=== PATIENT | female | born 1940 | race Caucasian/White ===

== ENCOUNTER 2016-06-18 10:02 | Observation (INO) | payer MEDICARE ==
--- NOTE | ~2016-06-18 | EGD ---
EGD REPORT [facility] [address] [id number] NAME: SANDI CABELLO : [birth year] STATUS : ADM Nils PAT#: [id number] AGE: 76 ADM/REG DATE : 06/18/16 MR#: [id number] REPORT SERV DATE: 06/18/16 DICTATED BY: JEAN PACHECO DATE: 06/18/16 REPORT STATUS : Draft TRANSCRIBED BY: [facility] DATE: 06/18/16 [facility] Patient Name: Sandi Cabello Date of : 1940 Attending MD: STACY PACHECO MD Procedure Date No Time: 06/18/2016 Procedure: Colonoscopy Indications: High risk colon cancer surveillance: Personal history of colonic polyps Referring MD: Abhijit Moss Medicines: See the Anesthesia note for documentation of the administered medications Complications: No immediate complications. Estimated blood loss: None. Procedure: Pre-Anesthesia Assessment: - ASA Grade Assessment: III - A patient with severe systemic disease. - Prior to the procedure, a History and Physical was performed, and patient medications and allergies were reviewed. The patient's tolerance of previous anesthesia was also reviewed. The risks and benefits of the procedure and the sedation options and risks were discussed with the patient. All questions were answered, and informed consent was obtained. Prior Anticoagulants: The patient has taken no previous anticoagulant or antiplatelet agents. After reviewing the risks and benefits, the patient was deemed in satisfactory condition to undergo the procedure. After I obtained informed consent, the scope was passed under direct vision. Throughout the procedure, the patient's blood pressure, pulse, and oxygen saturations were monitored continuously. The PCF [id number] was introduced through the anus and advanced to the terminal ileum. The ileocecal valve, appendiceal orifice, terminal ileum and rectum were photographed. The entire colon was examined. The colonoscopy was performed without difficulty. The patient tolerated the procedure well. The quality of the bowel preparation was adequate. Findings: The perianal and digital rectal examinations were normal. The terminal ileum appeared normal. A sessile polyp was found in the sigmoid colon. The polyp was 5 mm in size. The polyp was removed with a cold snare. Resection and retrieval were complete. No other significant abnormalities were identified in a careful EGD REPORT [address] [address] NAME: SANDI CABELLO : [birth year] STATUS : ADM Nils PAT#: [id number] AGE: 76 ADM/REG DATE : 06/18/16 MR#: [id number] REPORT SERV DATE: 06/18/16 DICTATED BY: JEAN PACHECO DATE: 06/18/16 REPORT STATUS : Draft TRANSCRIBED BY: [employer] DATE: 06/18/16 examination of the remainder of the colon. Impression: - The examined portion of the ileum was normal. - One 5 mm polyp in the sigmoid colon. Resected and retrieved. Recommendation: - Patient has a contact number available for emergencies. The signs and symptoms of potential delayed complications were discussed with the patient. Return to normal activities tomorrow. Written discharge instructions were provided to the patient. - Regular diet. - Discharge patient to home. - Continue present medications. - Await pathology results. - Repeat colonoscopy in 5 years for surveillance. Procedure Code(s): --- Professional --- 84498, Colonoscopy, flexible, proximal to splenic flexure; with removal of tumor(s), polyp(s), or other lesion(s) by snare technique Diagnosis Code(s): --- Professional --- D12.5, Benign neoplasm of sigmoid colon Z86.010, Personal history of colonic polyps CPT copyright 2013 [employer]. All rights reserved. The codes documented in this report are preliminary and upon appliance technician review may be revised to meet current compliance requirements. STACY PACHECO MD 06/18/2016 4:10 PM This report has been signed electronically. Number of Addenda: 0 Note Initiated On: 06/18/2016 10:54 AM Scope Withdrawal Time 0 hours 7 minutes 40 seconds [id number] [id number]
--- NOTE | ~2016-06-18 | HP ---
History And Physical [place] [id number] [facility] [place] [address] NAME: SANDI VALENTIN : [birth year] STATUS : ADM Nils PAT#: [id number] AGE: 76 ADM/REG DATE : 06/18/16 MR#: [id number] REPORT SERV DATE: 06/18/16 DICTATED BY: QUOC MAURICE DATE: 06/18/16 REPORT STATUS : Draft TRANSCRIBED BY: MODMayi DATE: 06/18/16 DATE OF ADMISSION: 06/18/2016 REASON FOR ADMISSION: Atrial flutter/atrial fibrillation with RVR. HISTORY OF PRESENT ILLNESS: Ms. Valentin is a very pleasant 76-year-old female with a history of hypothyroidism, hypertension, hyperlipidemia, remote atrial fibrillation (postoperative approximately three years ago, spontaneously resolved), and colon polyps, who presented to [facility] for an elective outpatient screening colonoscopy. In the preprocedural area, she was found to be in atrial flutter with RVR. She was given IV Lopressor 3 mg and then 2 mg with profound sinus pauses of approximately 6 to 7 seconds times multiple episodes. During these pauses, she was mildly symptomatic with weakness and dizziness. She subsequently received atropine 0.5 mg IV x1 with resolution of her pauses. At that point in time, I was called to evaluate her for further care and therapy regarding her atrial fibrillation. In speaking with her, she states that she has no symptoms whatsoever. She denies having any chest pains, pressures, dizziness, or loss of consciousness (this is all after atropine was given). She additionally states she has not had any issues at home. Since her atrial fibrillation episode approximately three years ago, she is unaware of any recurrence, however, she does not feel palpitations when she is in atrial fibrillation including now. PAST MEDICAL HISTORY: 1. Remote AFib postoperative (approximately three years ago, spontaneously resolved). 2. Hypertension. 3. Hyperlipidemia. 4. Hypothyroidism on Synthroid. 5. Colon polyps. ALLERGIES: LISINOPRIL. SOCIAL HISTORY: The patient lives at [facility] in an independent room. She functions fully independently. She has no limitations whatsoever. She is able to climb four flights of stairs sequentially she states without limitation. She denies drugs, smoking, or drinking alcohol. FAMILY HISTORY: Significant for heart disease (not specified) in her father's family including her dad. REVIEW OF SYSTEMS: As above, all other systems otherwise negative. PHYSICAL EXAMINATION: VITAL SIGNS: Blood pressure 130/80, pulse 140-150 on atrial fibrillation, temperature afebrile. GENERAL: Well developed, well nourished, no acute distress. NEURO: Awake, alert and oriented x3; no focal deficits, appropriate mood. History And Physical [address] [address] NAME: SANDI VALENTIN : [birth year] STATUS : ADM Nils PAT#: [id number] AGE: 76 ADM/REG DATE : 06/18/16 MR#: [id number] REPORT SERV DATE: 06/18/16 DICTATED BY: QUOC MAURICE DATE: 06/18/16 REPORT STATUS : Draft TRANSCRIBED BY: JEANNETTE DATE: 06/18/16 HEENT: Moist mucous membranes, anicteric sclerae, no nasal discharge. NECK: No JVD, no carotid bruit. LUNGS: Clear to auscultation bilaterally, no wheezes, rales or rhonchi. CV: Irregularly irregular. Normal S1, S2. No murmurs, rubs, or gallops. ABD: Soft, non-tender, non-distended, no rebound or guarding. EXT: No pitting edema, normal distal pulses. SKIN: Warm, dry and intact; no rash. PERTINENT TEST FINDINGS: Potassium pending. White blood cell count 5.2, hemoglobin 14.9, platelets 173. Telemetry strips demonstrates atrial fibrillation with RVR as well as significant sinus pauses of approximately 6 to 7 seconds times 3 to 4 episodes (resolved). Potassium 3.6, creatinine 0.98, GFR 56. Troponin 0.03. CPK 112. IMPRESSION AND PLAN: Ms. Valentin is a very pleasant 76-year-old female with a history of hypertension, hyperlipidemia, remote atrial fibrillation, and colon polyps, who presented from home for an elective colonoscopy today found to be in atrial flutter/fibrillation with rapid ventricular response, with pronounced response to IV Lopressor having multiple pauses of 6 to 7 seconds in length, that have since resolved having received atropine. Accordingly, I have the following recommendations for problem below: 1. Atrial fibrillation/atrial flutter-presently in atrial fibrillation with rapid ventricular response. No longer having any sinus pauses. Dosed with amiodarone 150 mg IV x1 (low). Schedule for BRAULIO cardioversion this afternoon as she is currently n.p.o. Avoid further IV Lopressor at this time. Monitor cardiac telemetry for any recurrent pauses, this will likely result in her requiring a pacemaker. As she had a clear trigger for pauses and an exaggerated response to Lopressor, I did not believe she requires a pacemaker at this point in time. Start anticoagulation. I will keep her on a heparin drip for the time being, in the event that she does require a pacemaker tomorrow. Check an echocardiogram. 2. Sinus pauses-as above. These have resolved. They were clearly triggered with IV Lopressor. Pending her response following BRAULIO cardioversion, it may be necessary for her to get a pacemaker. Given, however, that she had a clear trigger for her pauses (IV Lopressor), I do not believe that she warrants a pacemaker adjust at this time. 3. Hypertension-controlled. 4. Hyperlipidemia-statin as written. 5. Hypothyroidism-on home Synthroid. Check TSH and free T4. VR/MODL Quoc Maurice MD / [id number] CC: History And Physical [address] [address] NAME: SANDI VALENTIN : [birth year] STATUS : ADM Nils PAT#: [id number] AGE: 76 ADM/REG DATE : 06/18/16 MR#: [id number] REPORT SERV DATE: 06/18/16 DICTATED BY: QUOC MAURICE DATE: 06/18/16 REPORT STATUS : Draft TRANSCRIBED BY: MODL DATE: 06/18/16 Quoc Maurice MD
[~2016-06-18 10:02] MED LIST: ALLEGRA180 PO; ASAB PO; BIST PO; BYSTOLIC5 MG PO; CALCIUM CITRATE PO; DITRO5 PO; DSS PO; DYAZIDE1 CAP PO; FISH OIL300 MG PO; KLOR-CON M2020 MEQ PO; LEVOTHYROXIN50 MCG PO; LEVOTHYROXIN75 MCG PO; MAX25 PO; MOBIC7.5 PO; NEUR300 PO; NORV25 PO; NORV5 PO; PCET PO; PRILOSEC40 MG PO; PROBIOTIC; SINGULAIR1 PO; ULTRAM50 PO; V5 PO; VITD PO; ZOCOR40 PO; ZOL100 PO; ZOL50 PO
[2016-06-18 11:46] LABS: BASOPHILS 0.2 %; BASOPHILS ABSOLUTE 0.01 10/3/uL (0.0-0.16); EOSINOPHILS 0.4 %; EOSINOPHILS ABSOLUTE 0.02 10/3/uL (0.0-0.53); HEMATOCRIT 43.3 % (36.0-48.0); HEMOGLOBIN 14.9 g/dL (12.0-16.0); LYMPHOCYTES 24.8 %; MEAN CORPUS HGB CONC 34.4 g/dL (32.0-36.0); MEAN CORPUSCULAR HEMOGLOB 30.4 pg (26.0-34.0); MEAN CORPUSCULAR VOLUME 88.4 fL (80-100); MEAN PLATELET VOLUME 12.3 fL (9.2-13.0); MONOCYTES 6.5 %; MONOCYTES ABSOLUTE 0.34 10/3/uL (0.21-1.20); NEUTROPHILS 68.1 %; NEUTROPHILS ABSOLUTE 3.57 10/3/uL (2.02-8.40); PLATELET COUNT 173 10/3/uL (150-400); RBC DISTRIBUTION WIDTH 12.9 % (12.0-16.0); WHITE BLOOD CELLS 5.2 10/3/uL (4.5-10.5)
[2016-06-18 11:47] LABS: MANUAL DIFF NO %
[2016-06-18 12:04] LABS: A/G RATIO 1.3 (0.7-1.9); ALBUMIN 3.8 G/DL (3.5-5.0); ALKALINE PHOSPHATASE 52 U/L (45-117); BUN (BLOOD UREA NITROGEN) 12 MG/DL (6-23); CALCIUM, SERUM 9.2 MG/DL (8.5-10.4); CHLORIDE, SERUM 103 MMOL/L (96-112); CO2 (CARBON DIOXIDE) 29 MMOL/L (24-34); CPK 112 U/L (0-200); CREATININE 0.98 MG/DL (0.55-1.02); GFR AFRICAN AMERICAN 65 ML/MIN (>=60); GFR NON AFRICAN AMERICAN 56 ML/MIN (>=60); GLOBULIN 2.9 G/DL (2.5-4.1); GLUCOSE, SERUM 89 MG/DL (60-99); POTASSIUM, SERUM 3.6 MMOL/L (3.5-5.3); SGOT(AST) 20 U/L (5-40); SGPT(ALT) 27 U/L (5-65); SODIUM, SERUM 143 MMOL/L (135-148); TOTAL BILIRUBIN 0.8 MG/DL (0-1.2); TOTAL PROTEIN 6.7 G/DL (6.0-8.5); TROPONIN I 0.03 NG/ML (<0.05)
[2016-06-18 12:05] LABS: CK-MB 1.9 NG/ML
[2016-06-18 15:54] LABS: FREE T4 1.94 NG/DL (0.76-1.46); ULTRASENSITIVE TSH 0.356 MCIU/ML (0.358-3.740)
[2016-06-19 05:33] LABS: CALCIUM, SERUM 8.8 MG/DL (8.5-10.4); CHLORIDE, SERUM 107 MMOL/L (96-112); CO2 (CARBON DIOXIDE) 27 MMOL/L (24-34); GFR AFRICAN AMERICAN 63 ML/MIN (>=60); GFR NON AFRICAN AMERICAN 55 ML/MIN (>=60); GLUCOSE, SERUM 88 MG/DL (60-99); POTASSIUM, SERUM 3.7 MMOL/L (3.5-5.3); SODIUM, SERUM 145 MMOL/L (135-148)
[2016-06-19 05:35] LABS: BUN (BLOOD UREA NITROGEN) 19 MG/DL (6-23)
[2016-06-19 05:49] LABS: BASOPHILS 0.4 %; BASOPHILS ABSOLUTE 0.02 10/3/uL (0.0-0.16); EOSINOPHILS 2.1 %; HEMATOCRIT 42.3 % (36.0-48.0); HEMOGLOBIN 14.7 g/dL (12.0-16.0); IMMATURE GRANULOCYTES 0.2 %; IMMATURE GRANULOCYTES ABSOLUTE 0.01 10/3/uL (0.0-0.11); LYMPHOCYTES 32.9 %; LYMPHOCYTES ABSOLUTE 1.54 10/3/uL (0.67-4.30); MEAN CORPUS HGB CONC 34.8 g/dL (32.0-36.0); MEAN CORPUSCULAR HEMOGLOB 31.5 pg (26.0-34.0); MEAN CORPUSCULAR VOLUME 90.8 fL (80-100); MEAN PLATELET VOLUME 12.6 fL (9.2-13.0); MONOCYTES ABSOLUTE 0.42 10/3/uL (0.21-1.20); NEUTROPHILS 55.4 %; NEUTROPHILS ABSOLUTE 2.59 10/3/uL (2.02-8.40); PLATELET COUNT 180 10/3/uL (150-400); RED CELL COUNT 4.66 10/6/uL (4.0-5.6); WHITE BLOOD CELLS 4.7 10/3/uL (4.5-10.5)
[2016-06-19 05:55] LABS: MANUAL DIFF NO %
[2016-06-19] MEDS ORDERED: ELIQUIS 5 MG TAB5 MG PO (12:52)
== END 2016-06-19 14:00 | disposition home or self-care (01) ==
LOC: DMU 10:02 → SSU1 11:48
PROVIDERS: Anesthesiology; Internal Medicine Gastroenterology; Student in an Organized Health Care Education/Training Program
PROC: 0DBN8ZZ Excision of Sigmoid Colon, Via Natural or Artificial Opening Endoscopic (ICD-10-PCS; principal; 2016-06-18 11:30)
DX: Z12.11 Encounter for screening for malignant neoplasm of colon (principal); D12.5 Benign neoplasm of sigmoid colon; I10 Essential (primary) hypertension; I48.91 Unspecified atrial fibrillation; E03.9 Hypothyroidism, unspecified; K21.9 Gastro-esophageal reflux disease without esophagitis; E78.5 Hyperlipidemia, unspecified; E78.00 Pure hypercholesterolemia, unspecified; Z88.8 Allergy status to other drugs, medicaments and biological substances; Z79.899 Other long term (current) drug therapy; Z87.891 Personal history of nicotine dependence; Z96.1 Presence of intraocular lens; Z98.41 Cataract extraction status, right eye; Z98.42 Cataract extraction status, left eye; Z86.010 Personal history of colon polyps
CPT/HCPCS: 80048; 80053; 82550; 82553; 84439; 84443; 84484; 85025; 85730; 88305; 93005; 93306; 96374; A9270-GY; G0378; J0282; J0461

== ENCOUNTER 2016-09-08 08:42 | Inpatient (IN) | payer MEDICARE ==
[2016-09-07 11:38] LABS: BASOPHILS 0.3 %; BASOPHILS ABSOLUTE 0.02 10/3/uL (0.0-0.16); EOSINOPHILS 0.4 %; EOSINOPHILS ABSOLUTE 0.03 10/3/uL (0.0-0.53); HEMATOCRIT 45.7 % (36.0-48.0); HEMOGLOBIN 15.7 g/dL (12.0-16.0); IMMATURE GRANULOCYTES 0.1 %; IMMATURE GRANULOCYTES ABSOLUTE 0.01 10/3/uL (0.0-0.11); LYMPHOCYTES ABSOLUTE 1.72 10/3/uL (0.67-4.30); MEAN CORPUS HGB CONC 34.4 g/dL (32.0-36.0); MEAN CORPUSCULAR HEMOGLOB 30.9 pg (26.0-34.0); MEAN PLATELET VOLUME 12.3 fL (9.2-13.0); MONOCYTES ABSOLUTE 0.57 10/3/uL (0.21-1.20); NEUTROPHILS 67.2 %; NEUTROPHILS ABSOLUTE 4.81 10/3/uL (2.02-8.40); PLATELET COUNT 216 10/3/uL (150-400); RBC DISTRIBUTION WIDTH 12.8 % (12.0-16.0); RED CELL COUNT 5.08 10/6/uL (4.0-5.6)
[2016-09-07 11:39] LABS: MANUAL DIFF NO %; WHITE BLOOD CELLS 7.2 10/3/uL (4.5-10.5)
[2016-09-07 11:43] LABS: PROTIME (NOT ORD) 13.5 SEC (12.0-14.5)
[2016-09-07 11:56] LABS: A/G RATIO 1.7 (0.7-1.9); ALBUMIN 4.5 G/DL (3.5-5.0); BUN (BLOOD UREA NITROGEN) 16 MG/DL (6-23); CALCIUM, SERUM 9.6 MG/DL (8.5-10.4); CHLORIDE, SERUM 103 MMOL/L (96-112); CO2 (CARBON DIOXIDE) 31 MMOL/L (24-34); CREATININE 0.96 MG/DL (0.55-1.02); GFR AFRICAN AMERICAN 67 ML/MIN (>=60); GFR NON AFRICAN AMERICAN 57 ML/MIN (>=60); GLOBULIN 2.7 G/DL (2.5-4.1); GLUCOSE, SERUM 100 MG/DL (60-99); SGOT(AST) 29 U/L (5-40); SGPT(ALT) 29 U/L (5-65); SODIUM, SERUM 141 MMOL/L (135-148); TOTAL BILIRUBIN 0.6 MG/DL (0-1.2); TOTAL PROTEIN 7.2 G/DL (6.0-8.5)
[2016-09-07 11:57] LABS: ALKALINE PHOSPHATASE 64 U/L (45-117)
[2016-09-07 13:03] LABS: ASCORBIC ACID (UR NOT ORDER) NEG (NEG); BILIRUBIN, URINE NEGATIVE (NEG); KETONE, URINE NEGATIVE (NEG); LEUKOCYTE ESTERASE(NOT OR NEG (NEG); WBC (NOT ORDERED) (RFLEX) < 1 (0-5)
--- NOTE | ~2016-09-08 | OP ---
Record Of Operation [facility] [address] [place]. [address] NAME: SANDI VALENTIN : 40 STATUS : ADM IN PAT#: [id number] AGE: 76 ADM/REG DATE : 09/08/16 MR#: [id number] REPORT SERV DATE: 09/09/16 DICTATED BY: SAM KIDD JR. DATE: 09/08/16 REPORT STATUS : Draft TRANSCRIBED BY: MODL DATE: 09/08/16 DATE OF PROCEDURE: 09/08/2016 PREOPERATIVE DIAGNOSES: Right middle lobe indeterminate mass, atrial fibrillation, hyperlipidemia, sick sinus syndrome, large left atrium, hypertension. 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 NAME OF OPERATION: Bronchoscopy, right thoracoscopy with exploration, right middle lobectomy, complete mediastinal node dissection, nathan stations 7, 9, 11R, intercostal nerve block. SURGEON: Sam Kidd MD BODY BUILDER: Manuel Phillips. RESIDENT SURGEON: Dr. Ash Rashid. ANESTHESIA: General endotracheal. FINDINGS: The patient was noted to have no endobronchial lesions. Mucous secretions were evacuated. There were no contraindications on bronchoscopy to proceeding on with surgery. There was a mass, but easily palpable within the right middle lobe as well as contained within the right middle lobe. We elected to go ahead and remove the right middle lobe given the likelihood of this being a malignant tumor and inability to wedge this out. Frozen section confirmed this to be a likely neuroendocrine carcinoma, compatible with a carcinoid tumor. We could not absolutely rule out small cell cancer. Final pathology is pending. DETAILS OF OPERATION: After adequate general anesthesia, the patient was intubated. Bronchoscopy was performed, noting no endobronchial lesions. A left-sided double-lumen endotracheal tube was then placed. The patient was then positioned in the left lateral decubitus position. The right chest was prepped and draped in routine sterile fashion. A small incision was made overlying the lower intercostal space. A separate anterior trocar incision was also made. Through these two incision sites, above findings noted. The mass was identified, well contained within the right middle lobe. I saw no contraindications of proceeding with middle lobectomy. The right middle lobe vein was then identified, coming off the superior pulmonary vein. It was transected with a vascular stapler. The inferior pulmonary ligament was also divided. The bronchus was then dissected out and divided with a KATHY stapler. The fissure was divided with multiple firings of KATHY stapler with tissue reinforcements. Pulmonary arterial branches divided with a vascular stapler. The right middle lobe was then removed and placed within specimen bag and brought through the anterior trocar site. Nodes from the subcarinal, inferior pulmonary ligament, hilar regions were removed. There was no significant adenopathy seen in the right paratracheal space. An intercostal nerve block was performed. A 20-Malay chest tube was then placed. The lung was reinflated. The trocar sites were closed with running Vicryl sutures. The skin was Record Of Operation [address] [place]. [address] NAME: SANDI VALENTIN : 40 STATUS : [facility] [id number] AGE: 76 ADM/REG DATE : 09/08/16 MR#: [id number] REPORT SERV DATE: 09/09/16 DICTATED BY: SAM KIDD JR. DATE: 09/08/16 REPORT STATUS : Draft TRANSCRIBED BY: JEANNETTE DATE: 09/08/16 closed with running monofilament suture. A Dermabond dressing was applied. The procedure was terminated at this point. The patient tolerated the procedure well and taken back to recovery room in stable condition. JARAD/JEANNETTE Sam Kidd Jr., M.D. / [id number] CC: Shawanda Fried Jr., DO Vimal Ramjee, MD Hisham F. Qutob, MD
[~2016-09-08 08:42] MED LIST changes: +ELIQUIS 5 MG TAB5 MG PO
[2016-09-09 04:16] LABS: BASOPHILS 0 %; EOSINOPHILS 0 %; HEMATOCRIT 39.7 % (36.0-48.0); IMMATURE GRANULOCYTES 0.2 %; IMMATURE GRANULOCYTES ABSOLUTE 0.02 10/3/uL (0.0-0.11); LYMPHOCYTES 10.6 %; LYMPHOCYTES ABSOLUTE 0.92 10/3/uL (0.67-4.30); MANUAL DIFF NO %; MEAN CORPUS HGB CONC 35.3 g/dL (32.0-36.0); MEAN CORPUSCULAR HEMOGLOB 31.5 pg (26.0-34.0); MEAN CORPUSCULAR VOLUME 89.4 fL (80-100); MEAN PLATELET VOLUME 12.6 fL (9.2-13.0); MONOCYTES 6.1 %; MONOCYTES ABSOLUTE 0.53 10/3/uL (0.21-1.20); NEUTROPHILS 83.1 %; NEUTROPHILS ABSOLUTE 7.24 10/3/uL (2.02-8.40); PLATELET COUNT 185 10/3/uL (150-400); RBC DISTRIBUTION WIDTH 12.7 % (12.0-16.0); RED CELL COUNT 4.44 10/6/uL (4.0-5.6); WHITE BLOOD CELLS 8.7 10/3/uL (4.5-10.5)
[2016-09-09 04:27] LABS: BUN (BLOOD UREA NITROGEN) 13 MG/DL (6-23); CHLORIDE, SERUM 105 MMOL/L (96-112); GFR AFRICAN AMERICAN 63 ML/MIN (>=60); GFR NON AFRICAN AMERICAN 55 ML/MIN (>=60); POTASSIUM, SERUM 3.8 MMOL/L (3.5-5.3); SODIUM, SERUM 138 MMOL/L (135-148)
[2016-09-09 04:28] LABS: CALCIUM, SERUM 8.6 MG/DL (8.5-10.4); CO2 (CARBON DIOXIDE) 26 MMOL/L (24-34); GLUCOSE, SERUM 205 MG/DL (60-99)
[2016-09-09] MEDS ORDERED: PCET PO (11:27)
[2016-09-10] MEDS ORDERED: CORDARONE PO (08:35)
== END 2016-09-10 11:11 | disposition home or self-care (01) | DRG 165 ==
LOC: SDC/OF 08:42 → 5NO 15:13
PROVIDERS: Thoracic Surgery (Cardiothoracic Vascular Surgery)
PROC: 07B74ZZ Excision of Thorax Lymphatic, Percutaneous Endoscopic Approach (ICD-10-PCS; 2016-09-08)
PROC: 3E0T3BZ Introduction of Anesthetic Agent into Peripheral Nerves and Plexi, Percutaneous Approach (ICD-10-PCS; 2016-09-08)
PROC: 0BTD4ZZ Resection of Right Middle Lung Lobe, Percutaneous Endoscopic Approach (ICD-10-PCS; principal; 2016-09-08 10:45)
DX: C7A.090 Malignant carcinoid tumor of the bronchus and lung (principal); I49.5 Sick sinus syndrome; I48.0 Paroxysmal atrial fibrillation; E78.5 Hyperlipidemia, unspecified; I10 Essential (primary) hypertension
CPT/HCPCS: 36415; 71010; 80048; 80053; 81001; 82962; 83036; 85025; 85610; 86850; 86900; 86901; 87641; 88305; 88307; 88309; 88331; 88341; 88342; 88360; 93005; 94010; 94640; 94729; A9270-GY; J0282; J0690; J1160; J1885; J2250; J2370; J2405; J2710; J2795; J3010